=== PATIENT | male | born 1965 | race Caucasian/White ===

== ENCOUNTER 2018-04-03 13:15 | Day surgery (SDC) | payer OTHER ==
[~2018-04-03] VITALS: Ht 180.3 cm; Wt 85.6 kg
[~2018-04-03 13:15] MED LIST: AMLO10; SILDENAFIL20 MG PO
== END 2018-04-03 15:56 | disposition home or self-care (01) ==
LOC: ORSCSDS 13:15
PROVIDERS: Internal Medicine Gastroenterology
PROC: 0DBH8ZX Excision of Cecum, Via Natural or Artificial Opening Endoscopic, Diagnostic (ICD-10-PCS; principal; 2018-04-03 14:30)
DX: Z12.11 Encounter for screening for malignant neoplasm of colon (principal); D12.0 Benign neoplasm of cecum; K64.8 Other hemorrhoids; I10 Essential (primary) hypertension
CPT/HCPCS: J2405; J7120

== ENCOUNTER → 2022-05-07 | Outpatient (CLI) | payer OTHER ==
[2022-05-07 13:14] LABS: Source, Urine Voided
[2022-05-07 15:40] LABS: Red Blood Cells, Urine 0-2 /hpf (0-2); White Blood Cells, Urine 0-2 /hpf (0-5)
[2022-05-07 15:41] LABS: Bacteria Rare /hpf; Squamous Epithelial Cells Rare /hpf (Few)
== END | disposition home or self-care (01) ==
LOC: LAB SHORT 13:12 → LAB 13:12
PROVIDERS: Physician Assistant Medical
DX: R30.9 Painful micturition, unspecified (principal)
CPT/HCPCS: 81015; 87086

== ENCOUNTER 2024-10-02 07:39 | Day surgery (SDC) | payer OTHER ==
[2024-10-02] VITALS (27 sets, daily range): BP systolic 97–147; BP diastolic 62–98
[~2024-10-02] VITALS: Ht 175.3 cm; Wt 81.8 kg
[~2024-10-02 07:39] MED LIST changes: +Benzocaine Oral Spray 0.5ML UD ONE; +NS 500 ML IV SCH; +TAMS.4ER PO
--- NOTE | 2024-10-02 08:21 | NUR ---
Ambulatory in Day Surgery History, Chart, Medications and Allergies reviewed before start of procedure. Pre-Op teaching done. Pt verbalizes understanding. Patient States Post-Procedure ride home has been arranged.
[2024-10-02] MEDS ORDERED: propofoL 40 ML IV ONE (08:35)
--- NOTE | 2024-10-02 08:57 | NUR ---
10/02/24 0857 Kita Shaw CONFIRMED AND REVIEWED H&P, MEDCICATIONS, ALLERGIES, MEDICAL HISTORY, RESPIRATORY HISTORY, VITAL SIGNS, 3-LEAD EKG, CONSENTS, AND PHYSICIAN ORDERS. PATIENT CONFIRMS NPO STATUS AND AGREES WITH SCHEDULED PROCEDURE. MONITOR INTACT WITH CONTINUOUS PULSE OXIMETRY, CAPNOGRAPHY, 3-LEAD EKG, INTERMITTENT BP. SUPPLEMENTAL O2 TO BE TITRATED THROUGHOUT PROCEDURE TO MAINTAIN O2 SATURATION ABOVE 90%. PATIENT DETERMINED TO BE ASA APPROPRIATE FOR PROPOFOL SEDATION PRIOR TO START OF PROCEDURE BY DR. MONROE
--- NOTE | 2024-10-02 09:33 | NUR ---
REPORT RECEIVED FROM KING ECHEVERRIA. VSS. PT ON RA. PT A&OX4. PT ABLE TO REPOSITION SELF IN BED. PT REQUESTING PO FLUIDS AND TOLERATING THEM WELL. PT DENIES PAIN, NAUSEA OR OTHER DISCOMFORTS.
[2024-10-02] MEDS ORDERED: Pantoprazole Sodium 40 MG Injection IV ONE (09:40)
--- NOTE | 2024-10-02 10:24 | NUR ---
Patient up to Ambulate independently. Gait steady. VSS AND CONSISTENT WITH PT BASELINE. PT HAS NO COMPLAINTS AND VERBALIZES READINESS TO GO HOME. Discharge instructions reviewed with patient. Patient verbalizes understanding. Copy given to patient to take home. THIS RN, CALLED [facility] FOR PT PRESCRIPTION. PT INSTRUCTED TO PLACEMENT OFFICER AND BEGIN TAKING OMEPRAZOLE 20MG PO BID PER DR MONROE. PT VERBALIZES UNDERSTANDING. Patient States Post-Procedure ride home has been arranged. Discharged via wheelchair to private car for ride home. PT BELONGINGS RETURNED TO PT.
== END 2024-10-02 10:24 | disposition home or self-care (01) ==
LOC: ORSCMMR 07:39 → ORD 08:30 → ORSCMMR 08:30
DX: R10.13 Epigastric pain (principal); K21.9 Gastro-esophageal reflux disease without esophagitis; K25.4 Chronic or unspecified gastric ulcer with hemorrhage; K29.70 Gastritis, unspecified, without bleeding; Z12.11 Encounter for screening for malignant neoplasm of colon; Z86.0101 Personal history of adenomatous and serrated colon polyps; D12.3 Benign neoplasm of transverse colon; I10 Essential (primary) hypertension; G47.33 Obstructive sleep apnea (adult) (pediatric); N40.0 Benign prostatic hyperplasia without lower urinary tract symptoms; Z79.899 Other long term (current) drug therapy
CPT/HCPCS: 88305; 88341; 88342; A9270; J2470; J2704; J7040

== ENCOUNTER 2025-01-28 09:24 | Day surgery (SDC) | payer OTHER ==
[2025-01-28] VITALS (12 sets, daily range): BP systolic 109–157; BP diastolic 76–98
[~2025-01-28] VITALS: Ht 172.7 cm; Wt 84.0 kg
[~2025-01-28 09:24] MED LIST changes: -Benzocaine Oral Spray 0.5ML UD ONE; +Lactated Ringer's 1,000 ML IV SCH; -NS 500 ML IV SCH; +OMEP20ER PO
--- NOTE | 2025-01-28 10:00 | NUR ---
History, Chart, Medications and Allergies reviewed before start of procedure. Patient up to Ambulate independently. Gait steady. Pre-Op teaching done. Pt verbalizes understanding. Patient confirms NPO status and agrees with scheduled surgery. Patient States Post-Procedure ride home has been arranged.
[2025-01-28] MEDS ORDERED: propofoL 20 ML IV ONE (10:18)
[2025-01-28] MEDS ORDERED: Benzocaine Oral Spray 0.5ML UD ONE (10:18)
--- NOTE | 2025-01-28 10:25 | NUR ---
01/28/25 1025 Payton Hampton CONFIRMED AND REVIEWED H&P, MEDCICATIONS, ALLERGIES, MEDICAL HISTORY, RESPIRATORY HISTORY, VITAL SIGNS, 3-LEAD EKG, CONSENTS, AND PHYSICIAN ORDERS. PATIENT CONFIRMS NPO STATUS AND AGREES WITH SCHEDULED PROCEDURE. MONITOR INTACT WITH CONTINUOUS PULSE OXIMETRY, CAPNOGRAPHY, 3-LEAD EKG, INTERMITTENT BP. SUPPLEMENTAL O2 TO BE TITRATED THROUGHOUT PROCEDURE TO MAINTAIN O2 SATURATION ABOVE 90%. PATIENT DETERMINED TO BE ASA APPROPRIATE FOR PROPOFOL SEDATION PRIOR TO START OF PROCEDURE BY DR. MONROE MALLAMPATI CLASS 2 AIRWAY: COMPLETE VISUALIZATION OF THE UVULA.
--- NOTE | 2025-01-28 11:28 | NUR ---
Patient up to Ambulate independently. Gait steady. Discharge instructions reviewed with patient. Patient verbalizes understanding. Copy given to patient to take home. Patient States Post-Procedure ride home has been arranged.
== END 2025-01-28 11:43 | disposition home or self-care (01) ==
LOC: ORSCMMR 09:24 → ORD 10:00 → ORSCMMR 10:00
PROVIDERS: Internal Medicine Gastroenterology
PROC: 0DB88ZX Excision of Small Intestine, Via Natural or Artificial Opening Endoscopic, Diagnostic (ICD-10-PCS; principal; 2025-01-28 10:00)
DX: K25.0 Acute gastric ulcer with hemorrhage (principal); I10 Essential (primary) hypertension; N40.0 Benign prostatic hyperplasia without lower urinary tract symptoms; K21.9 Gastro-esophageal reflux disease without esophagitis; Z86.0100 Personal history of colon polyps, unspecified; Z87.19 Personal history of other diseases of the digestive system; G47.30 Sleep apnea, unspecified; Z87.898 Personal history of other specified conditions; Z79.899 Other long term (current) drug therapy
CPT/HCPCS: 88305; 88342; A9270; J2704; J7120